=== PATIENT | female | born 1980 | race Caucasian/White ===

== ENCOUNTER 2017-05-02 09:49 | Emergency (ER) | payer MEDICAID, OTHER ==
[~2017-05-02] VITALS: Ht 167.6 cm; Wt 102.1 kg
--- NOTE | 2017-05-02 09:50 | NUR ---
PT TO ED ROOM 02. RIGHT FLANK PAIN SINCE 399,RADIATING TO R SHOULDER. A/A/O. AMBULATORY WITH STEADY GAIT. CHANGED TO GOWN. SIDE RAISL UP. HOB ELEVATED. CONNECTED TO MONITOR.AWAITING EVALUATION BY ER PROVIDER.
--- NOTE | 2017-05-02 10:10 | NUR ---
URINE SAMPLE COLLECTED FROM PATIENT AND SEND TO LAB. Joanna Mcdaniels 22 IV STRTED BY RN, BLOOD TEST OBTAINED AND SEND TO LAB.
[2017-05-02] MEDS ORDERED: HYDROMORPHONE 1 MG/1 ML DISP.SYRIN ONE ×2 (10:13→12:06)
[2017-05-02] MEDS ORDERED: ONDANSETRON HCL/PF 4 MG/2 ML VIAL ONE (10:13)
[2017-05-02 10:18] LABS: BASOPHILS % (AUTO) 0.4 % (0.0-2.0); EOSINOPHILS # (AUTO) 0.1 /CMM (0.0-0.7); HEMATOCRIT 39 % (33-45); HEMOGLOBIN 12.3 g/dL (11.5-14.8); LYMPHOCYTES # (AUTO) 2.4 /CMM (0.8-4.8); LYMPHOCYTES % (AUTO) 33.2 % (20.0-44.0); MEAN CORPUSCULAR HEMOGLOBIN 26 PG (26.0-33.0); MEAN CORPUSCULAR HGB CONC 32 g/dl (31.0-36.0); MEAN CORPUSCULAR VOLUME 80 fL (82-100); MONOCYTES # (AUTO) 0.4 /CMM (0.1-1.30); MONOCYTES % (AUTO) 5.5 % (2.0-12.0); NEUTROPHILS # (AUTO) 4.3 /CMM (1.8-8.9); NEUTROPHILS % (AUTO) 59.9 % (43.0-81.0); PLATELET COUNT (AUTO) 204 /CMM (150-450); RDW COEFFICIENT OF VARIATION 13.6 (11.5-15.0); RED BLOOD CELL COUNT(AUTO) 4.82 MIL/uL (4.0-5.2); WHITE BLOOD COUNT (AUTO) 7.2 K/uL (4.3-11.0)
[2017-05-02 10:20] LABS: APPEARANCE,URINE Clear (CLEAR); BILIRUBIN,URINE Negative (NEGATIVE); BLOOD, URINE Negative Ery/uL (NEGATIVE); COLOR,URINE Yellow (YELLOW); KETONES,URINE Negative (NEGATIVE); LEUKOCYTE ESTERASE ,URINE Negative (NEGATIVE); NITRITE, URINE Negative (NEGATIVE); PROTEIN,URINE Trace mg/dl (NEGATIVE); UGLUCOSE Negative (NEGATIVE); UROBILINOGEN,URINE 0.2 EU/dL (0.2)
[2017-05-02 10:21] LABS: PH,URINE >8.5 (5.0-8.0)
[2017-05-02 10:28] LABS: CALCIUM, SERUM 8.8 mg/dL (8.5-10.1); CREATININE 0.8 mg/dL (0.6-1.3)
[2017-05-02] MEDS ORDERED: ONDANSETRON HCL/PF 4 MG/2 ML VIAL IVP ONE (10:30)
[2017-05-02] MEDS ORDERED: HYDROMORPHONE INJ 2 MG/ML DISP.SYRIN IV ONE (10:30)
--- NOTE | 2017-05-02 10:30 | NUR ---
xray at bedside
[2017-05-02 10:33] LABS: ALBUMIN 3.5 g/dL (3.4-5.0); BILIRUBIN,TOTAL 0.3 mg/dL (0.2-1.0); TOTAL PROTEIN, SERUM 7.3 g/dL (6.4-8.2)
[2017-05-02 10:34] LABS: BACTERIA,URINE Few /HPF (None Seen); RBC,URINE 0-3 /HPF (0-2); SQUAMOUS EPITHELIAL CELL,UR Few /HPF (None Seen); YEAST,URINE None Seen /HPF (None Seen)
--- NOTE | 2017-05-02 10:57 | NUR ---
Patient is resting comfortably in bed with eyes closed. Easily aroused. VSS
--- NOTE | 2017-05-02 11:49 | NUR ---
US AT BEDSIDE
--- NOTE | 2017-05-02 12:14 | NUR ---
DILAUDID 0.5 MG IVP GIVEN PER DR BAEZA ORDER. DILAUDID 0.5 MG WASTED, WITNESSED BY MICHAEL HERNANDEZ RN. DILAUDID ORDER IS NOT REFLECTING IN eMAR.
--- NOTE | 2017-05-02 12:25 | NUR ---
Patient discharged to home in stable condition. Written and verbal after care instructions given. Patient verbalizes understanding of instruction.IV removed. Catheter intact and site benign. Pressure and 4x4 applied to site. No bleeding noted. ambulatory with a steady gait.
[2017-05-02 12:26] VITALS: BP 102/59
== END 2017-05-02 12:27 | disposition home or self-care (01) ==
LOC: ER 09:52
DX: R10.11 Right upper quadrant pain (principal); Z85.841 Personal history of malignant neoplasm of brain
CPT/HCPCS: 36415; 71010; 76705; 80048; 80076; 81001; 83690; 84703; 85025; 96374; 96375; 99285; J1170 ×2; J2405; 81000-TC